=== PATIENT | female | born 1985 | race Caucasian/White ===

== ENCOUNTER 2017-03-23 05:40 | Inpatient (IN) | payer BC ==
[2017-03-23 06:11] LABS: ROM Internal QC QC Line Present
[2017-03-23] MEDS ORDERED: Misoprostol TAB* 100 MCG PO ONE (15:15)
[2017-03-24 02:06] LABS: Hematocrit 37 % (35-47); Hemoglobin 12.5 g/dl (12.0-16.0); Mean Corpuscular HGB Conc 34 g/dl (31-36); Mean Corpuscular Hemoglobin 32 pg (27-31); Mean Corpuscular Volume 95 fL (80-97); Mean Platelet Volume 9 um3 (7.4-10.4); Red Blood Count 3.92 10^6/ul (4.0-5.4); Red Cell Distribution Width 14 % (10.5-15); White Blood Count 18.5 10^3/ul (3.5-10.8)
[2017-03-24] MEDS ORDERED: OBEPIDURAL* 250 ML ONE (02:53)
[2017-03-24] MEDS ORDERED: Phenylephrine IV* 40 MCG/ML 10 ML SYRINGE IV PUSH PRN ×2 (03:26)
[2017-03-24] MEDS ORDERED: Famotidine TAB* 20 MG PO PRN (03:26)
[2017-03-24] MEDS ORDERED: EPHEDrine (Pressors)* 50 MG/ML VIAL IV PUSH PRN ×2 (03:26)
[2017-03-24] MEDS ORDERED: Sodium Citrate/Citric Acid* 15 ML UDC PO PRN (03:26)
[2017-03-24] MEDS ORDERED: Oxytocin in LR* 20 UNITS/1,000 ML BAG IVPB ONE (07:58)
[2017-03-24] MEDS ORDERED: Oxytocin in LR* 20 UNITS/1,000 ML BAG IVPB SCH ×2 (08:00→11:08)
[2017-03-24] MEDS ORDERED: oxyCODONE/Acetamin 5/325 MG* TAB PO PRN (11:06)
[2017-03-24] MEDS ORDERED: Glycerin ADULT SUPP PR PRN (11:06)
[2017-03-24] MEDS ORDERED: Acetaminophen TAB* 325 MG PO PRN (11:06)
[2017-03-24] MEDS: Ibuprofen TAB* 600 MG PO PRN ×2 (12:33→19:41)
[2017-03-24] MEDS: Dibucaine 1% 28.35 GM TUBE PR PRN (12:33)
[2017-03-24] MEDS: Witch Hazel PAD* JAR TOPICAL PRN (12:33)
[2017-03-24] MEDS: Docusate CAP* 100 MG PO SCH ×2 (14:27→19:41)
[2017-03-25] MEDS: Ibuprofen TAB* 600 MG PO PRN ×4 (01:06→19:43)
[2017-03-25] MEDS: OBEPIDURAL* 250 ML EPIDURAL SCH (04:59)
[2017-03-25 07:35] LABS: Hematocrit 32 % (35-47); Hemoglobin 10.6 g/dl (12.0-16.0); Mean Corpuscular HGB Conc 33 g/dl (31-36); Mean Corpuscular Hemoglobin 32 pg (27-31); Mean Corpuscular Volume 95 fL (80-97); Mean Platelet Volume 9 um3 (7.4-10.4); Red Blood Count 3.37 10^6/ul (4.0-5.4); Red Cell Distribution Width 14 % (10.5-15)
[2017-03-25] MEDS ORDERED: Ferrous Gluconate TAB* 324 MG TAB PO SCH (09:00)
[2017-03-25] MEDS: Docusate CAP* 100 MG PO SCH ×3 (13:08→20:40)
[2017-03-26 08:29] VITALS: BP 100/57
[2017-03-26] MEDS: Docusate CAP* 100 MG PO SCH (08:30)
[2017-03-26] MEDS: Ibuprofen TAB* 600 MG PO PRN (08:30)
[2017-03-26] MEDS: Witch Hazel PAD* JAR TOPICAL PRN (11:39)
[2017-03-26] MEDS: Dibucaine 1% 28.35 GM TUBE PR PRN (11:39)
== END 2017-03-26 12:35 | disposition home or self-care (01) | DRG 560 ==
LOC: MCHOBOUT 05:40 → MCHOB 06:20
PROVIDERS: ADMIT Midwife; ATTEND Obstetrics & Gynecology
PROC: 10E0XZZ Delivery of Products of Conception, External Approach (ICD-10-PCS; principal; 2017-03-24)
PROC: 0W8NXZZ Division of Female Perineum, External Approach (ICD-10-PCS; 2017-03-24)
DX: O42.02 Full-term premature rupture of membranes, onset of labor within 24 hours of rupture (principal); O99.344 Other mental disorders complicating childbirth; F32.9 Major depressive disorder, single episode, unspecified; O69.81X0 Labor and delivery complicated by cord around neck, without compression, not applicable or unspecified; F41.9 Anxiety disorder, unspecified; Z3A.37 37 weeks gestation of pregnancy; Z37.0 Single live birth
CPT/HCPCS: 36415; 76815; 84112; 85025; 86850; 86900; 86901; A9270-GY; S0191

== ENCOUNTER → 2019-05-28 | Day surgery (SDC) | payer BC ==
[~2019-05-28] MED LIST: Buffered Lidocaine 1% SYRIN* 1 ML/SYRINGE INTRADERM ONE; DOXYcycline IV 200 MG in NS 250 mL *Pre-Op OBGYN IVPB ONE; Dexamethasone IV* 4 MG/ML 1 ML (4 MG) ONE; Famotidine IV* 10 MG/ML 2 ML (20 mg) IV ONE; Famotidine IV* 10 MG/ML 2 ML (20 mg) ONE; KETAMINE HCL* 50 MG/ML 10 ML VIAL ONE; Ketorolac INJ* 30 MG/ML 1 ML VIAL ONE; Lactated Ringers 1000 ML Bag* 1,000 ML IV SCH; Lidocaine 1% INJ* 10 MG/ML 30 ML SDV ONE; Lidocaine 2% PF * 5 ML VIAL ONE; Midazolam* 1 MG/ML 2 ML VIAL (2 MG) ONE; Midazolam* 1 MG/ML 5 ML VIAL (5 MG) ONE; Naloxone* 0.4 MG/ML 1 ML VIAL IV PRN; Ondansetron INJ* 2 MG/ML VIAL IV PRN; Ondansetron INJ* 2 MG/ML VIAL ONE; Phenylephrine 40 MCG/ML SYRINGE ONE; Propofol* 10 MG/ML 20 ML BTL ONE; Silver Nitrate/Potassium Nitr* 1 EA STICK ONE; fentaNYL* 50 MCG/ML 2 ML VIAL (100 MCG VIAL) IV PRN; fentaNYL* 50 MCG/ML 2 ML VIAL (100 MCG VIAL) ONE
[2019-05-28 12:00] VITALS: BP 109/77
--- NOTE | 2019-05-28 13:01 | OP ---
Operative Report - Blank - Operative Report Date of Operation: 05/28/19 Note: OPERATIVE NOTE Date of Surgery: 05/28/2019 Pre-Op Dx: Missed at 6 weeks Post-op Dx: same Procedure: Suction D&C Surgeon: Chacorta Mancera DO Anesthesia: MAC + Paracervical Blockade IVF: 400mL EBL: 10mL UOP: none Specimen: Products of Conception Complications: none Findings: 6wk sized uterus anterverted, moderate products of conception Condition: stable to PACU Procedures: The risks, benefits, alternatives and indications of the procedure were reviewed with the patient. Patient opted for surgical management of MAB with suction D&C. Written consent was reviewed and obtained. Patient was taken to the OR where MAC was administered without difficulty. She was placed in dorsal lithotomy position with yellowfin stirrups. An exam under anesthesia revealed a 6wk sized anteverted uterus with a dilated cervix to 1cm. The patient was prepped and draped in the normal sterile fashion. A graves speculum was placed in the vagina. A single tooth tenaculum was used to gasp the anterior lip of the cervix. 10cc of 1% lidocaine was injected at 4 and 8 o'clock for paracervical blockade without complication. The cervix was carefully dilated with hegar dilators to accomodate a size 7 suction curette. The size 7 suction curette was carefully advanced to the fundus. The suction was started. The products of conception were evacuated with the curette rotating on the outward movement. The is was done x 3. A gentle sharp curettage was then performed with a medium sized curette with cry of the uterus noted x 4 quadrants. The suction curette was then reintroduced to the clear the uterus with one final pass. The tenaculum was removed from the cervix and silver nitrate applied at the tenaculum sites with good effect and ultimate excellent hemostasis. The patient tolerated the procedure well. The instrument and sponge counts were correct. The patient was awakened and taken to the recovery room in stable condition. The patient will be discharged from the recovery area once meeting discharge criteria per ambulatory surgery protocol. Chacorta Mancera DO OBGYN
== END | disposition home or self-care (01) ==
LOC: OR 07:54
PROVIDERS: ATTEND Obstetrics & Gynecology
DX: O02.1 Missed abortion (principal); F41.8 Other specified anxiety disorders
CPT/HCPCS: 88305; A9270-GY; J1100; J1885; J2250; J2405; J2704; J3010

== ENCOUNTER 2019-11-22 17:34 | Emergency (ER) | payer BC, MEDICAID ==
--- NOTE | 2019-11-22 17:53 | ED ---
- HPI Summary HPI Summary: 34 y/o female presented to [facility] for spotting and cramping during . Noted small amount of dark blood today. Pt is 7.5 weeks . , P: 1, A : 3. Pt notes hx of ectopic and [address] Mancera. Blood type is O positive. - History of Current Complaint Chief Complaint: EDOBProblems Stated Complaint: 7 WKS PREG SPOTTING PER PT Time Seen by Provider: 11/22/19 17:36 Hx Obtained From: Patient Chief Complaint: Vaginal Bleeding - spotting Onset/Duration: Still Present Current Severity: Mild Pain Intensity: 2 Character: Cramping Associated Signs and Symptoms: Positive: Vaginal Bleeding or Discharge - spotting - Assessment SAB: 2 IEA: 0 - Additional Pertinent History Maternal Blood Type and Rh: O Positive - Allergies/Home Medications Allergies/Adverse Reactions: Allergies Allergy/AdvReac Type Severity Reaction Status Date / Time No Known Allergies Allergy Verified 11/22/19 17:44 Home Medications: Home Medications Pnv No.95/Ferrous Fum/Folic AC [ Multivitamin Tablet] 1 each PO QAM [History Confirmed 11/22/19] Doxylamine Succinate [Unisom Sleep Aid] 12.5 mg PO QPM 11/22/19 [History Confirmed 11/22/19] PMH/Surg Hx/FS Hx/Imm Hx Endocrine/Hematology History: Reports: Hx Anemia - HX OF 15 YEARS AGO Denies: Hx Thyroid Disease Cardiovascular History: Denies: Other Cardiovascular Problems/Disorders Respiratory History: Denies: Hx Asthma, Hx Chronic Obstructive Pulmonary Disease (COPD), Other Respiratory Problems/Disorders GI History: Denies: Other GI Disorders History: Reports: Other Problems/Disorders - past ectopic ( 1 y) and miscarriage at 5weeks Denies: Hx Renal Disease Musculoskeletal History: Denies: Other Musculoskeletal History Sensory History: Reports: Hx Contacts or Glasses - INSTRUCTS GIVEN Denies: Hx Hearing Aid Opthamlomology History: Reports: Hx Contacts or Glasses - INSTRUCTS GIVEN Neurological History: Denies: Other Neuro Impairments/Disorders Psychiatric History: Reports: Hx Anxiety - HX OF IN THE PAST, Hx Depression - HX OF IN THE PAST - Surgical History Surgery Procedure, Year, and Place: 2014-ECTOPIC CLEARED FROM LEFT TUBE. 2002-WISDOM TEETH EXTRACTION. 1992-HERNIA REPAIR Hx Anesthesia Reactions: Yes - SOBBIN UNCONTROLLABLY Infectious Disease History: No Infectious Disease History: Denies: Traveled Outside the [place] in Last 30 Days - Family History Known Family History: Positive: Hypertension - mother - Social History Alcohol Use: None Alcohol Amount: NOT RECENTLY Hx Substance Use: No Substance Use Type: Reports: None Hx Tobacco Use: No Smoking Status (MU): Never Smoked Tobacco Have You Smoked in the Last Year: No Review of Systems Negative: Fever - vitals show temp at 97.9F Genitourinary: Other - spotting, cramping All Other Systems Reviewed And Are Negative: Yes Physical Exam - Summary Physical Exam Summary: Constitutional: Well-developed, Well-nourished, Alert. (-) Distressed Skin: Warm, Dry HENT: Normocephalic; Atraumatic Eyes: Conjunctiva normal Neck: Musculoskeletal ROM normal neck. (-) JVD, (-) Stridor, (-) Nuchal rigidity Cardio: Rhythm regular, tachycardic, Heart sounds normal; Intact distal pulses; Radial pulses are 2+ and symmetric. (-) Murmur Pulmonary/Chest wall: Effort normal. (-) Respiratory distress, (-) Wheezes, (-) Rales Abd: Soft, (-) tenderness, (-) Distension, (-) Guarding, (-) Rebound Musculoskeletal: (-) Edema Lymph: (-) Cervical adenopathy Neuro: Alert, Oriented x3 Psych: Mood and affect Normal - Physical Exam Triage Information Reviewed: Yes Vital Signs Reviewed: Yes Procedures - Sedation Patient Received Moderate/Deep Sedation with Procedure: No Diagnostics - Vital Signs Vital Signs Temp Pulse Resp BP Pulse Ox 11/22/19 17:41 97.9 F 95 16 141/82 100 - Laboratory Lab Statement: Any lab studies that have been ordered have been reviewed, and results considered in the medical decision making process. - Ultrasound Ultrasound Interpretation Completed By: Radiologist Summary of Ultrasound Findings: IMPRESSION: 1. Left ovarian cyst. Recommend follow-up examination to document resolution. 2. Early intrauterine of 7 weeks and 3 days estimated gestational. age. This report was reviewed by the ED physician. Course/Dx - Course Course Of Treatment: 34 y/o F at 7 weeks p/w spotting/cramping. - check US. O positive. - US measuring 7 weeks 3 days, +FCA. - given return precautions - Diagnoses Provider Diagnoses: Threatened miscarriage Discharge ED - Sign-Out/Discharge Documenting (check all that apply): Patient Departure - dc - Discharge Plan Condition: Stable Disposition: HOME Patient Education Materials: Threatened Miscarriage (ED) Referrals: Barbara Young DO [Primary Care Provider] - Additional Instructions: You were seen in the emergency department for spotting. Your ultrasound showed a at 7 weeks and 3 days and a left ovarian cyst. Please follow up with your OB. Please follow up with your primary care doctor in the next 2-3 days and return to the emergency department for worsening bleeding, or concerning symptoms. It was a pleasure taking care of you today. - Billing Disposition and Condition Condition: STABLE Disposition: Home - Attestation Statements Document Initiated by Jamia: Yes Documenting Scribe: Blair Brown Provider For Whom Jamia is Documenting (Include Credential): Maynor Pepper MD Scribe Attestation: IBlair, scribed for Maynor Pepper MD on 11/22/19 at 1942. Scribe Documentation Reviewed: Yes Provider Attestation: The documentation as recorded by the scribBlair mata accurately reflects the service I personally performed and the decisions made by , Maynor Pepper MD Status of Scribe Document: Viewed
--- OUTSIDE RECORDS SUMMARY | 2019-11-22 18:35 | XMS REPORT | Continuity of Care Document ---
:1985 External Reference #:[id number] Author Name Jonny Mancera JR, DO (transmitted by agent of provider Nicole Kendrick) Address [address] [facility], [facility] [place] [address] Care Team Providers Name Role Phone Barbara Young M.D - Internal Care Team Information [employer] Director Medicine Problems Active Problems Provider Date Primigravida Kathie Hernandez CNM Onset: 08/31/2016 Social History Type Date Description Comments Sex Unknown Tobacco Use Start: Unknown Never Smoked Cigarettes Smoking Status Reviewed: 10/24/19 Never Smoked Cigarettes ETOH Use Occasionally consumes alcohol Recreational Drug Use former sporadic marijuana use Tobacco Use Start: Unknown Patient has never smoked Exercise Type/Frequency Exercises sporadically Seat Belt/Car Seat Always uses seat belt Allergies, Adverse Reactions, Alerts Description No Known Drug Allergies Medications Description No Active Medications Medications Administered in Office Medication SIG Qnty Indications Ordering Provider Date PT SCRN Tbco Id as Non User Jonny Mancera JR, DO 10/24/2019 Injection PT SCRN Tbco Id as Non User Betzaida Peterson MD 05/26/2019 Injection PT SCRN Tbco Id as Non User Otilia Rasmussen CNM 05/21/2019 Injection Immunizations CPT Code Status Date Vaccine Lot # [id number] Given 01/29/2017 Tetnus, Diptheria Toxoids And Acellular Pertussis, 594SR PT > 7Yrs Old Vital Signs Date Vital Result Comment 10/24/2019 8:29am BP Systolic 104 mmHg BP Diastolic 60 mmHg Height 67 inches 5'7" Weight 126.00 lb BMI (Body Mass Index) 19.7 kg/m2 Last Menstrual Period 6242063 4 Parity 1 06/10/2019 1:03pm BP Systolic 102 mmHg BP Diastolic 68 mmHg Height 67 inches 5'7" Weight 122.00 lb BMI (Body Mass Index) 19.1 kg/m2 Last Menstrual Period 3807915 4 Parity 1 Results Test Acquired Date Facility Test Result H/L Range Note Laboratory test 10/24/2019 [facility] HCG 78.16 [address] [place] [address] mIU/mL [phone] Laboratory test 06/10/2019 [facility] TSH 0.60 Normal 0.34- 5.60 [address] [place] [address] mcIU/mL [phone] T4 Free 0.97 ng/dL Normal 0.61-1.12 3 Laboratory test 05/28/2019 [facility] Surgical SEE RESULT [address] [place] [address] Pathology BELOW [phone] Laboratory test 05/23/2019 [facility] HCG 80109.00 [address] [place] [address] mIU/mL [phone] Laboratory test 05/21/2019 [facility] HCG 95433.00 [address] [place] [address] mIU/mL [phone] 1 <5.0 Negative 5.0 - 25.0 Indeterminate (Repeat testing recommended after 72 hours) >25.0 Positive Perimenopausal women can display HCG levels of up to 20 mIU/mL 2 [id number] 3 [id number] 4 SEE RESULT BELOW Name: APOORVA BATRES : [address]: Jonny Mancera DO Acct: [id number] Unit: [id number] AGE: 33 Location: OR Re05/28/19 SEX: F Status: REG [facility] SPEC: [id number] AGUSTÍN: 05/28/19- [facility] DR: Jonny Mnacera DO REQ: [id number] RECD: 05/28/19 STATUS: SOUT _ ORDERED: LEVEL 4 FINAL DIAGNOSIS Uterus, contents: -- Products of conception including immature chorionic villi. PRE-OPERATIVE DIAGNOSIS Dilation and curettage GROSS DESCRIPTION The specimen is received in formalin labeled, Products of Conception, and consists of an 8.0 x 5.2 x 0.8 cm aggregate of cuevas-pink irregular membranous and focally papilliferous soft tissue fragments admixed with blood-tinged mucus and red-brown blood clot. Probable chorionic villi are identified. No parts are identified. Clean Energy Policy Analyst sections, two cassettes. Signed by and Reported on: Cal Neal MD 1336 END OF REPORT DEPARTMENT OF PATHOLOGY, [address] [place] [address] Cal Neal M.D. Director [facility] # [id number] 5 <5.0 Negative 5.0 - 25.0 Indeterminate (Repeat testing recommended after 72 hours) >25.0 Positive Perimenopausal women can display HCG levels of up to 20 mIU/mL 6 <5.0 Negative 5.0 - 25.0 Indeterminate (Repeat testing recommended after 72 hours) >25.0 Positive Perimenopausal women can display HCG levels of up to 20 mIU/mL Procedures Date Code Description Status 05/28/2019 45717 Dilation & Curettage (D&C) Completed 05/21/2019 81966 OB Ultrasound First Trimester Completed Medical Devices Description No Information Available Encounters Type Date Location Provider Dx Diagnosis Office Visit 10/24/2019 [facility] Jonny Mancera JR, O26.91 related 8:00a DO conditions, unspecified, first trimester Office Visit 06/10/2019 [facility] Jonny Mancera JR, O02.1 Missed 1:00p DO Office Visit 05/26/2019 [facility] Betzaida Peterson, O02.1 Missed 11:00a MD Office Visit 05/21/2019 [facility] Otilia Rasmussen CNM O36.80x1 with 10:30a inconclusive viability, fetus 1 Assessments Date Code Description Provider 10/24/2019 Z32.00 Encounter for test, result Eric Peña M.D. unknown 10/24/2019 O26.91 related conditions, unspecified, Jonny Mancrea JR , DO first trimester 10/24/2019 Z32.00 Encounter for test, result Laboratory unknown 06/10/2019 O02.1 Missed Jonny Mancera JR, DO 05/28/2019 O02.1 Missed Jonny Mancera JR, DO 05/26/2019 O02.1 Missed Betzaida Peterson MD 05/23/2019 O02.1 Missed Susy Logan MD 05/23/2019 O02.1 Missed Laboratory 05/21/2019 O26.91 related conditions, unspecified, Jonny Mancera JR , DO first trimester 05/21/2019 O36.80x1 with inconclusive Otilia Rasmussen CNM viability, fetus 1 05/21/2019 O26.91 related conditions, unspecified, Ultrasounds first trimester Plan of Treatment Future Appointment(s):12/03/2019 1:00 pm - [facility] at [facility]11/20/2019 3:00 pm - [facility] at [facility]11/20/2019 2:30 pm - Ultrasounds at [facility]06/10/2019 - Jonny Mancera JR DOO02.1 Missed abortionComments:Pt recovering well.No complications s/p suction D&C for MAB.Will check TSH/T4. Functional Status Description No Information Available Mental Status Description No Information Available Referrals Description No Information Available
--- OUTSIDE RECORDS SUMMARY | 2019-11-22 18:35 | XMS REPORT | Continuity of Care Document ---
:1985 External Reference #:[id number] Author Name Ultrasounds (transmitted by agent of provider Milla Vernon) Address [address] [place] [address] Care Team Providers Name Role Phone Barbara Young M.D - Internal Care Team Information Account Services Manager Medicine Problems Description No Information Available Social History Type Date Description Comments Sex Unknown Tobacco Use Start: Unknown Never Smoked Cigarettes Smoking Status Reviewed: 10/24/19 Never Smoked Cigarettes ETOH Use Occasionally consumes alcohol Recreational Drug Use former sporadic marijuana use Tobacco Use Start: Unknown Patient has never smoked Recreational Drug Use Denies Drug Use Exercise Type/Frequency Exercises sporadically Seat Belt/Car Seat Always uses seat belt Allergies, Adverse Reactions, Alerts Description No Known Drug Allergies Medications Active Medications SIG Qnty Indications Ordering Date Provider Doxylamine take 2 tablets at 90tabs Diana Jade 11/10/2019 Succinate/Pyridoxine bedtime; if Rene, CNM Hydrochloride symtpoms persist 10-10mg after 72 hours, Tablets DR take an additional tablet in the morning and afternoon History Medications No Active Medications Unknown 05/26/2019 - 11/10/2019 Medications Administered in Office Medication SIG Qnty Indications Ordering Provider Date PT SCRN Tbco Id as Non User Jonny Mancera JR, DO 10/24/2019 Injection PT SCRN Tbco Id as Non User Betzaida Peterson MD 05/26/2019 Injection PT SCRN Tbco Id as Non User Otilia Rasmussen CNM 05/21/2019 Injection Immunizations CPT Code Status Date Vaccine Lot # [id number] Given 01/29/2017 Tetnus, Diptheria Toxoids And Acellular Pertussis, 594SR PT > 7Yrs Old Vital Signs Date Vital Result Comment 10/24/2019 8:29am BP Systolic 104 mmHg BP Diastolic 60 mmHg Height 67 inches 5'7" Weight 126.00 lb BMI (Body Mass Index) 19.7 kg/m2 Last Menstrual Period 1231446 4 Parity 1 06/10/2019 1:03pm BP Systolic 102 mmHg BP Diastolic 68 mmHg Height 67 inches 5'7" Weight 122.00 lb BMI (Body Mass Index) 19.1 kg/m2 Last Menstrual Period 1286536 4 Parity 1 Results Test Acquired Date Facility Test Result H/L Range Note Laboratory test 10/27/2019 [facility] HCG 285.44 [address] [place] [address] mIU/mL [phone] Laboratory test 10/24/2019 [facility] HCG 78.16 [address] [place] [address] mIU/mL [phone] Laboratory test 06/10/2019 [facility] TSH 0.60 Normal 0.34- 5.60 [address] [place] [address] mcIU/mL [phone] T4 Free 0.97 ng/dL Normal 0.61-1.12 4 Laboratory test 05/28/2019 [facility] Surgical SEE RESULT [address] [place] [address] Pathology BELOW [phone] Laboratory test 05/23/2019 [facility] HCG 57560.00 [address] [place] [address] mIU/mL [phone] Laboratory test 05/21/2019 [facility] HCG 86453.00 [address] [place] [address] mIU/mL [phone] 1 <5.0 Negative 5.0 - 25.0 Indeterminate (Repeat testing recommended after 72 hours) >25.0 Positive Perimenopausal women can display HCG levels of up to 20 mIU/mL 2 <5.0 Negative 5.0 - 25.0 Indeterminate (Repeat testing recommended after 72 hours) >25.0 Positive Perimenopausal women can display HCG levels of up to 20 mIU/mL 3 [id number] 4 [id number] 5 SEE RESULT BELOW Name: APOORVA BATRES : [address]: Jonny Mancera DO Acct: [id number] Unit: [id number] AGE: 33 Location: OR Re05/28/19 SEX: F Status: REG [facility] SPEC: [id number] AGUSTÍN: 05/28/19- [facility] DR: Jonny Mancera DO REQ: [id number] RECD: 05/28/19 STATUS: SOUT _ ORDERED: LEVEL [...] villi are identified. No parts are identified. Legal Consultant sections, two cassettes. Signed by and Reported on: Cal Neal MD 1336 END OF REPORT DEPARTMENT OF PATHOLOGY, [address] [place] [id number] Cal Neal M.D. Director [facility] # [id number] 6 <5.0 Negative 5.0 - 25.0 Indeterminate (Repeat testing recommended after 72 hours) >25.0 Positive Perimenopausal women can display HCG levels of up to 20 mIU/mL 7 <5.0 Negative 5.0 - 25.0 Indeterminate (Repeat testing recommended after 72 hours) >25.0 Positive Perimenopausal women can display HCG levels of up to 20 mIU/mL Procedures Date Code Description Status 11/10/2019 43756 OB Ultrasound First Trimester Completed 05/28/2019 11380 Dilation & Curettage (D&C) Completed 05/21/2019 71622 OB Ultrasound First Trimester Completed Medical Devices Description No Information Available Encounters Type Date Location Provider Dx Diagnosis Office Visit 10/24/2019 [facility] Jonny Mancera JR, O26.91 related 8:00a DO conditions, unspecified, first trimester Office Visit 06/10/2019 [facility] Jonny Mancera JR, O02.1 Missed 1:00p DO Office Visit 05/26/2019 [facility] Betzaida Peterson, O02.1 Missed 11:00a MD Office Visit 05/21/2019 [facility] Otilia Rasmussen CNM O36.80x1 with 10:30a inconclusive viability, fetus 1 Assessments Date Code Description Provider 11/10/2019 O26.91 related conditions, Jonny Mancera JR DO unspecified, first trimester 11/10/2019 Z34.81 Encounter for supervision of other Diana López CNM normal , first trimester 11/10/2019 O26.91 related conditions, Ultrasounds unspecified, first trimester 10/27/2019 Z32.00 Encounter for test, result Susy Logan MD unknown 10/27/2019 Z32.00 Encounter for test, result Laboratory unknown 10/24/2019 Z32.00 Encounter for test, result Eric Peña M.D. unknown 10/24/2019 O26.91 related conditions, Jonny Mancera JR, DO unspecified, first trimester 10/24/2019 Z32.00 Encounter for test, result Laboratory unknown 06/10/2019 O02.1 Missed Jonny Mancera JR, DO 05/28/2019 O02.1 Missed Jonny Mancera JR, DO 05/26/2019 O02.1 Missed Betzaida Peterson MD 05/23/2019 O02.1 Missed Susy Logan MD 05/23/2019 O02.1 Missed Laboratory 05/21/2019 O26.91 related conditions, Jonny Mancera JR, DO unspecified, first trimester 05/21/2019 O36.80x1 with inconclusive Otilia Rasmussen CNM viability, fetus 1 05/21/2019 O26.91 related conditions, Ultrasounds unspecified, first trimester Plan of Treatment Future Appointment(s):11/25/2019 8:15 am - [facility] at [facility]11/25/2019 8:00 am - Ultrasounds at [facility]12/03/2019 1:00 pm - [facility] at [facility]06/10/2019 - Jonny Mancera JR, DOO02.1 Missed abortionComments:Pt recovering well.No complications s/p suction D&C for MAB.Will check TSH/T4. Functional Status Description No Information Available Mental Status Description No Information Available Referrals Description No Information Available
--- OUTSIDE RECORDS SUMMARY | 2019-11-22 18:35 | XMS REPORT | Continuity of Care Document ---
:1985 External Reference #:[id number] Author Name Diana López CNM (transmitted by agent of provider Milla Vernon) Address [address] [facility] [place] [address] Care Team Providers Name Role Phone Barbara Young M.D - Internal Care Team Information Batter Out Medicine Problems Description No Information Available Social [...] 90tabs Diana Jade 11/10/2019 Succinate/Pyridoxine bedtime; if MOIRA López Hydrochloride symtpoms persist 10-10mg after 72 hours, [...] CPT Code Status Date Vaccine Lot # [id number] Given 01/29/2017 Tetnus, Diptheria Toxoids And Acellular Pertussis, 594SR PT > 7Yrs Old Vital Signs Date Vital Result Comment 10/24/2019 8:29am BP Systolic 104 mmHg BP Diastolic 60 mmHg Height 67 inches 5'7" Weight 126.00 lb BMI (Body Mass Index) 19.7 kg/m2 Last Menstrual Period 8507743 4 Parity 1 06/10/2019 1:03pm BP Systolic 102 mmHg BP Diastolic 68 mmHg Height 67 inches 5'7" Weight 122.00 lb BMI (Body Mass Index) 19.1 kg/m2 Last Menstrual Period 4149981 4 Parity 1 Results Test Acquired Date Facility Test Result H/L Range Note Laboratory test 10/27/2019 [facility] HCG 285.44 1 [place] [address] mIU/mL [phone] Laboratory test 10/24/2019 [facility] HCG 78.16 2 [place] [address] mIU/mL [phone] Laboratory test 06/10/2019 [facility] TSH 0.60 Normal 0.34- 5.60 3 [place] [address] mcIU/mL [phone] T4 Free 0.97 ng/dL Normal 0.61-1.12 4 Laboratory test 05/28/2019 [facility] Surgical SEE RESULT 5 [place] [address] Pathology BELOW [phone] Laboratory test 05/23/2019 [facility] HCG 11242.00 6 [place] [address] mIU/mL [phone] Laboratory test 05/21/2019 [facility] HCG 24975.00 7 [place] [address] mIU/mL [phone] 1 <5.0 Negative 5.0 - 25.0 Indeterminate (Repeat testing recommended after 72 hours) >25.0 Positive Perimenopausal women can display HCG levels of up to 20 mIU/mL 2 <5.0 Negative 5.0 - 25.0 Indeterminate (Repeat testing recommended after 72 hours) >25.0 Positive Perimenopausal women can display HCG levels of up to 20 mIU/mL 3 [id number] 4 [id number] 5 SEE RESULT BELOW Name: APOORVA BATRES : [address]: Jonny Mancera DO Acct: [id number] Unit: [id number] AGE: 33 Location: OR Re05/28/19 SEX: F [place] [facility] [place]: [id number] AGUSTÍN: 05/28/19- [facility] DR: Jonny Mancera DO REQ: [id number] RECD: 05/28/19 STATUS: SOUT _ ORDERED: LEVEL [...] villi are identified. No parts are identified. Butcher Supervisor sections, two cassettes. Signed by and Reported on: Cal Neal MD 1336 END OF REPORT DEPARTMENT OF PATHOLOGY, [address] [place] [address] Cal Neal M.D. Director [facility] # [id number] 6 <5.0 Negative 5.0 - 25.0 Indeterminate (Repeat testing recommended after 72 hours) >25.0 Positive Perimenopausal women can display HCG levels of up to 20 mIU/mL 7 <5.0 Negative 5.0 - 25.0 Indeterminate (Repeat testing recommended after 72 hours) >25.0 Positive Perimenopausal women can display HCG levels of up to 20 mIU/mL Procedures Date Code Description Status 11/10/2019 02288 OB Ultrasound First Trimester Completed 05/28/2019 12803 Dilation & Curettage (D&C) Completed 05/21/2019 75628 OB Ultrasound First Trimester Completed Medical Devices Description No Information Available Encounters Type Date Location Provider Dx Diagnosis Office Visit 10/24/2019 [facility] Jonny Mancera JR, O26.91 related 8:00a DO conditions, unspecified, first trimester Office Visit 06/10/2019 [facility] Office Jonny Mancera JR, O02.1 Missed 1:00p [...] 8:15 am - [facility] at [facility]11/25/2019 8:00 am - Ultrasounds at [facility]12/03/2019 1:00 pm - [facility] at [facility]06/10/2019 - Jonny Mancera JR, DOO02.1 Missed abortionComments:Pt recovering well.No complications s/p suction D&C for MAB.Will check TSH/T4. Functional Status Description No Information Available Mental Status Description No Information Available Referrals Description No Information Available
--- OUTSIDE RECORDS SUMMARY | 2019-11-22 18:35 | XMS REPORT | Continuity of Care Document ---
:1985 External Reference #:[id number] Author Name Laboratory (transmitted by agent of provider Jana Osman) Address [address] [place] [address] Care Team Providers Name Role Phone Barbara Young M.D - Internal Care Team Information Family Mediator Medicine Problems Active Problems Provider Date Primigravida Kathie Hernandez CNM Onset: 08/31/2016 Social History Type Date Description Comments Sex Unknown Tobacco Use Start: Unknown Never Smoked Cigarettes Smoking Status Reviewed: 06/10/19 Never Smoked Cigarettes ETOH Use Occasionally consumes [...] PT SCRN Tbco Id as Non User tOilia Rasmussen CNM 05/21/2019 Injection Immunizations CPT Code Status Date Vaccine Lot # [id number] Given 01/29/2017 Tetnus, Diptheria Toxoids And Acellular Pertussis, 594SR PT > 7Yrs Old Vital Signs Date Vital Result Comment 06/10/2019 1:03pm BP Systolic 102 mmHg BP Diastolic 68 mmHg Height 67 inches 5'7" Weight 122.00 lb BMI (Body Mass Index) 19.1 kg/m2 Last Menstrual Period 3021730 4 Parity 1 05/26/2019 11:05am BP Systolic 118 mmHg BP Diastolic 60 mmHg Height 67 inches 5'7" Weight 123.00 lb BMI (Body Mass Index) 19.3 kg/m2 Last Menstrual Period 5167306 4 Parity 1 Results Test Acquired Date Facility Test Result H/L Range Note Laboratory test 10/24/2019 [facility] HCG <pending> [place] [address] [phone] Laboratory test 06/10/2019 [facility] TSH 0.60 Normal 0.34- 5.60 1 [place] [address] mcIU/mL [phone] T4 Free 0.97 ng/dL Normal 0.61-1.12 2 Laboratory test 05/28/2019 [facility] Surgical SEE RESULT 3 [place] [address] Pathology BELOW [phone] Laboratory test 05/23/2019 [facility] HCG 86125.00 4 finding [place] [address] mIU/mL [phone] Laboratory test 05/21/2019 [facility] HCG 36508.00 5 finding [place] [address] mIU/mL [phone] 1 [id number] 2 [id number] 3 SEE RESULT BELOW Name: WOLFGANGAPOORVA : [address]: Jonny Mancera DO Acct: [id number] Unit: [id number] AGE: 33 Location: OR Re05/28/19 SEX: F Status: [facility] SPEC: [id number] AGUSTÍN: 05/28/19- [facility] DR: Jonny Mancera DO REQ: [id number] RECD: 05/28/19 STATUS: SOUT _ ORDERED: LEVEL [...] villi are identified. No parts are identified. Crusher And Binder Operator sections, two cassettes. Signed by and Reported on: Cal Neal MD 1336 END OF REPORT DEPARTMENT OF PATHOLOGY, [address] [place] [address] Cal Neal M.D. Director [facility] # [id number] 4 <5.0 Negative 5.0 - 25.0 Indeterminate (Repeat testing recommended after 72 hours) >25.0 Positive Perimenopausal women can display HCG levels of up to 20 mIU/mL 5 <5.0 Negative 5.0 - 25.0 Indeterminate (Repeat testing recommended after 72 hours) >25.0 Positive Perimenopausal women can display HCG levels of up to 20 mIU/mL Procedures Date Code Description Status 05/28/2019 92992 Dilation & Curettage (D&C) Completed 05/21/2019 53845 OB Ultrasound First Trimester Completed Medical Devices Description No Information Available Encounters Type Date Location Provider Dx Diagnosis Office Visit 06/10/2019 [facility] Jonny Mancera JR, O02.1 Missed 1:00p DO Office Visit 05/26/2019 [facility] Baclawski, Betazida, O02.1 Missed 11:00a MD Office Visit 05/21/2019 [facility] Otilia Rasmussen, SHIRLEYHarris O36.80x1 with 10:30a inconclusive viability, fetus 1 Assessments Date Code Description Provider 10/24/2019 Z32.00 Encounter for test, result unknown Laboratory 06/10/2019 O02.1 Missed Jonny Mancera JR, DO 05/28/2019 O02.1 Missed Jonny Mancera JR, DO 05/26/2019 O02.1 Missed Betzaida Peterson MD 05/23/2019 O02.1 Missed Susy Logan MD 05/23/2019 O02.1 Missed Laboratory 05/21/2019 O26.91 related conditions, unspecified, Jonny Mancera JR , DO first trimester 05/21/2019 O36.80x1 with inconclusive viability, Otilia Rasmussen CNM fetus 1 05/21/2019 O26.91 related conditions, unspecified, Ultrasounds first trimester Plan of Treatment Future Appointment(s):12/03/2019 1:00 pm - [facility] at [facility]11/20/2019 3:00 pm - [facility] at [facility]11/20/2019 2:30 pm - Ultrasounds at [facility]06/10/2019 - Jonny Mancera JR, DOO02.1 Missed abortionComments:Pt recovering well.No complications s/p suction D&C for MAB.Will check TSH/T4. Functional Status Description No Information Available Mental Status Description No Information Available Referrals Description No Information Available
--- OUTSIDE RECORDS SUMMARY | 2019-11-22 18:35 | XMS REPORT | Continuity of Care Document ---
:1985 External Reference #:[id number] Author Name Diana López CNM Address [address] [place] [address], [place] [address] Care Team Providers Name Role Phone Barbara Young M.D - Internal Care Team Information Specimen Boss [phone] Medicine Problems Active Problems Provider Date Primigravida [...] CPT Code Status Date Vaccine Lot # [id number] Given 01/29/2017 Tetnus, Diptheria Toxoids And Acellular Pertussis, 594SR PT > 7Yrs Old Vital Signs Date Vital Result Comment 10/24/2019 8:29am BP Systolic 104 mmHg BP Diastolic 60 mmHg Height 67 inches 5'7" Weight 126.00 lb BMI (Body Mass Index) 19.7 kg/m2 Last Menstrual Period 7246475 4 Parity 1 06/10/2019 1:03pm BP Systolic 102 mmHg BP Diastolic 68 mmHg Height 67 inches 5'7" Weight 122.00 lb BMI (Body Mass Index) 19.1 kg/m2 Last Menstrual Period 4289071 4 Parity 1 Results Test Acquired Date Facility Test Result H/L Range Note Laboratory test 10/27/2019 [facility] HCG 285.44 1 [place] [address] mIU/mL [phone] Laboratory test 10/24/2019 [facility] HCG 78.16 2 [place] [address] mIU/mL [phone] Laboratory test 06/10/2019 [facility] TSH 0.60 Normal 0.34- 5.60 3 [place] [address] mcIU/mL [phone] T4 Free 0.97 ng/dL Normal 0.61-1.12 4 Laboratory test 05/28/2019 [facility] Surgical SEE RESULT 5 [place] [address] Pathology BELOW [phone] Laboratory test 05/23/2019 [facility] HCG 29688.00 6 [place] [address] mIU/mL [phone] Laboratory test 05/21/2019 [facility] HCG 82318.00 7 [place] [address] mIU/mL [phone] 1 <5.0 Negative 5.0 - 25.0 Indeterminate (Repeat testing recommended after 72 hours) >25.0 Positive Perimenopausal women can display HCG levels of up to 20 mIU/mL 2 <5.0 Negative 5.0 - 25.0 Indeterminate (Repeat testing recommended after 72 hours) >25.0 Positive Perimenopausal women can display HCG levels of up to 20 mIU/mL 3 [id number] 4 [id number] 5 SEE RESULT BELOW Name: APOORVA BATRES : [address]: Jonny Mancera DO Acct: [id number] Unit: [id number] AGE: 33 Location: OR Re05/28/19 SEX: F Status: REG [facility] SPEC: [id number] AGUSTÍN: 05/28/19- [facility] DR: Jonny Mancera DO REQ: [id number] RECD: 05/28/19 STATUS: SOUT _ ORDERED: LEVEL [...] villi are identified. No parts are identified. Director Media sections, two cassettes. Signed by and Reported on: Cal Neal MD 1336 END OF REPORT DEPARTMENT OF PATHOLOGY, [address] [place] [address] Cal Neal M.D. Director [facility] # [id number] 6 <5.0 Negative 5.0 - 25.0 Indeterminate (Repeat testing recommended after 72 hours) >25.0 Positive Perimenopausal women can display HCG levels of up to 20 mIU/mL 7 <5.0 Negative 5.0 - 25.0 Indeterminate (Repeat testing recommended after 72 hours) >25.0 Positive Perimenopausal women can display HCG levels of up to 20 mIU/mL Procedures Date Code Description Status 11/10/2019 50649 OB Ultrasound First Trimester Completed 05/28/2019 97440 Dilation & Curettage (D&C) Completed 05/21/2019 02039 OB Ultrasound First Trimester Completed Medical Devices Description No Information Available Encounters Type Date Location Provider Dx Diagnosis Office Visit 10/24/2019 [facility] Jonny Mancera JR, O26.91 related 8:00a DO conditions, unspecified, first trimester Office Visit 06/10/2019 [facility] Jonny Mancera JR, O02.1 Missed 1:00p DO Office Visit 05/26/2019 [facility] Betzaida Peterson, O02.1 Missed 11:00a MD Office Visit 05/21/2019 [facility] tOilia RasmussenSHIRLEY O36.80x1 with 10:30a inconclusive viability, fetus 1 Assessments Date Code Description Provider 11/10/2019 O26.91 related conditions, unspecified, Ultrasounds first trimester 10/27/2019 Z32.00 Encounter for test, result Susy Logan MD unknown 10/27/2019 Z32.00 Encounter for test, result Laboratory unknown 10/24/2019 Z32.00 Encounter for test, result Eric Peña M.D. unknown 10/24/2019 O26.91 related conditions, unspecified, Jonny Mancera JR , DO first trimester 10/24/2019 Z32.00 [...] 1:00 pm - [facility]06/[facility]/2019 - Jonny Mancera JR, DOO02.1 Missed abortionComments:Pt recovering well.No complications s/p suction D&C for MAB.Will check TSH/T4. Functional Status Description No Information Available Mental Status Description No Information Available Referrals Description No Information Available
--- OUTSIDE RECORDS SUMMARY | 2019-11-22 18:35 | XMS REPORT | Continuity of Care Document ---
:1985 External Reference #:[id number] Author Name Laboratory (transmitted by agent of provider Jana Osman) Address [address] [place] [address] Care Team Providers Name Role Phone Barbara Young M.D - Internal Care Team Information Radio Director [phone] Medicine Problems Active Problems Provider Date Primigravida [...] SCRN Tbco Id as Non User Otilia Rsamussen CNM 05/21/2019 Injection Immunizations CPT Code Status Date Vaccine Lot # [id number] Given 01/29/2017 Tetnus, Diptheria Toxoids And Acellular Pertussis, 594SR PT > 7Yrs Old Vital Signs Date Vital Result Comment 10/24/2019 8:29am BP Systolic 104 mmHg BP Diastolic 60 mmHg Height 67 inches 5'7" Weight 126.00 lb BMI (Body Mass Index) 19.7 kg/m2 Last Menstrual Period 4916991 4 Parity 1 06/10/2019 1:03pm BP Systolic 102 mmHg BP Diastolic 68 mmHg Height 67 inches 5'7" Weight 122.00 lb BMI (Body Mass Index) 19.1 kg/m2 Last Menstrual Period 6444101 4 Parity 1 Results Test Acquired Date Facility Test Result H/L Range Note Laboratory test 10/27/2019 [facility] HCG <pending> [place] [address] [phone] Laboratory test 10/24/2019 [facility] HCG 78.16 1 finding [place] [address] mIU/mL [phone] Laboratory test 06/10/2019 [facility] TSH 0.60 Normal 0.34- 5.60 2 finding [place] [address] mcIU/mL [phone] T4 Free 0.97 ng/dL Normal 0.61-1.12 3 Laboratory test 05/28/2019 [facility] Surgical SEE RESULT 4 finding [place] [address] Pathology BELOW [phone] Laboratory test 05/23/2019 [facility] HCG 77552.00 [address] [place] [address] mIU/mL [phone] Laboratory test 05/21/2019 [facility] HCG 35108.00 [address] [place] [address] mIU/mL [phone] 1 <5.0 Negative 5.0 - 25.0 Indeterminate (Repeat testing recommended after 72 hours) >25.0 Positive Perimenopausal women can display HCG levels of up to 20 mIU/mL 2 [id number] 3 [id number] 4 SEE RESULT BELOW Name: WOLFGANGAPOORVA Elaine : [address]: Jonny Mancera DO Acct: [id number] Unit: [id number] AGE: 33 Location: OR Re05/28/19 SEX: F [place] [facility] [place]: [id number] AGUSTÍN: 05/28/19- DR: Jonny Mancera DO REQ: [id number] RECD: 05/28/19 STATUS: SOUT _ ORDERED: LEVEL [...] villi are identified. No parts are identified. Health Teacher sections, two cassettes. Signed by and Reported on: Cal Neal MD 1336 END OF REPORT DEPARTMENT OF PATHOLOGY, [address] [place] [address] Cal Neal M.D. Director [facility] # [id number] 5 <5.0 Negative 5.0 - 25.0 Indeterminate (Repeat testing recommended after 72 hours) >25.0 Positive Perimenopausal women can display HCG levels of up to 20 mIU/mL 6 <5.0 Negative 5.0 - 25.0 Indeterminate (Repeat testing recommended after 72 hours) >25.0 Positive Perimenopausal women can display HCG levels of up to 20 mIU/mL Procedures Date Code Description Status 05/28/2019 40021 Dilation & Curettage (D&C) Completed 05/21/2019 43390 OB Ultrasound First Trimester Completed Medical Devices Description No Information Available Encounters Type Date Location Provider Dx Diagnosis Office Visit 10/24/2019 [facility] Jonny Mancera JR, O26.91 related 8:00a DO conditions, unspecified, first trimester Office Visit 06/10/2019 [facility] Jonny Mancera JR, O02.1 Missed 1:00p DO Office Visit 05/26/2019 [facility] Betzaida Peterson, O02.1 Missed 11:00a MD Office Visit 05/21/2019 [facility] Otilia Rasmussen CNM O36.80x1 with 10:30a inconclusive viability, fetus 1 Assessments Date Code Description Provider 10/27/2019 Z32.00 Encounter for test, result Laboratory [...]
--- OUTSIDE RECORDS SUMMARY | 2019-11-22 18:35 | XMS REPORT | Continuity of Care Document ---
:1985 External Reference #:[id number] Author Name Jonny Mancera JR, DO (transmitted by agent of provider Shruti Louie ) Address [address] [facility] [place] [address] Care Team Providers Name Role Phone Barbara Young M.D - Internal Care Team Information Batch Tank Controller [phone] Medicine Problems Active Problems Provider Date Primigravida [...] CPT Code Status Date Vaccine Lot # [id number] Given 01/29/2017 Tetnus, Diptheria Toxoids And Acellular Pertussis, 594SR PT > 7Yrs Old Vital Signs Date Vital Result Comment 10/24/2019 8:29am BP Systolic 104 mmHg BP Diastolic 60 mmHg Height 67 inches 5'7" Weight 126.00 lb BMI (Body Mass Index) 19.7 kg/m2 Last Menstrual Period 0143689 4 Parity 1 06/10/2019 1:03pm BP Systolic 102 mmHg BP Diastolic 68 mmHg Height 67 inches 5'7" Weight 122.00 lb BMI (Body Mass Index) 19.1 kg/m2 Last Menstrual Period 8884371 4 Parity 1 Results Test Acquired Date Facility Test Result H/L Range Note Laboratory test 10/24/2019 [facility] HCG <pending> [place] [address] [phone] Laboratory test 06/10/2019 [facility] TSH 0.60 Normal 0.34- 5.60 1 [place] [address] mcIU/mL [phone] T4 Free 0.97 ng/dL Normal 0.61-1.12 2 Laboratory test 05/28/2019 [facility] Surgical SEE RESULT 3 [place] [address] Pathology BELOW [phone] Laboratory test 05/23/2019 [facility] HCG 89047.00 4 finding [place] [address] mIU/mL [phone] Laboratory test 05/21/2019 [facility] HCG 39558.00 5 finding [place] [address] mIU/mL [phone] 1 [id number] 2 [id number] 3 SEE RESULT BELOW Name: APOORVA BATRES : [address]: Jonny Mancera DO Acct: [id number] Unit: [id number] AGE: 33 Location: OR Re05/28/19 SEX: F [place] [facility]: [id number] AGUSTÍN: 05/28/19- [facility] DR: Jonny Mancera DO REQ: [id number] RECD: 05/28/19 STATUS: SOUT _ ORDERED: LEVEL [...] villi are identified. No parts are identified. Surface Supervisor sections, two cassettes. Signed by and Reported on: Cal Neal MD 1336 END OF REPORT DEPARTMENT OF PATHOLOGY, [address] [place] [address] Cal Neal M.D. Director [facility] # [id number] 4 <5.0 Negative 5.0 - 25.0 Indeterminate (Repeat testing recommended after 72 hours) >25.0 Positive Perimenopausal women can display HCG levels of up to 20 mIU/mL 5 <5.0 Negative 5.0 - 25.0 Indeterminate (Repeat testing recommended after 72 hours) >25.0 Positive Perimenopausal women can display HCG levels of up to 20 mIU/mL Procedures Date Code Description Status 05/28/2019 70187 Dilation & Curettage (D&C) Completed 05/21/2019 10033 OB Ultrasound First Trimester Completed Medical Devices Description No Information Available Encounters Type Date Location Provider Dx Diagnosis Office Visit 06/10/2019 [facility] Jonny Mancera JR, O02.1 Missed 1:00p DO Office Visit 05/26/2019 [facility] Betzaida Peterson, O02.1 Missed 11:00a MD Office Visit 05/21/2019 [facility] Otilia Rasmussen CNM O36.80x1 with 10:30a inconclusive [...] 1:00 pm - [facility] at [facility]11/20/2019 3:00 pm - [facility] at [facility]11/20/2019 2:30 pm - Ultrasounds at [facility]06/10/2019 - Jonny Mancera JR, DOO02.1 Missed abortionComments:Pt recovering well.No complications s/p suction D&C for MAB.Will check TSH/T4. Functional Status Description No Information Available Mental Status Description No Information Available Referrals Description No Information Available
[2019-11-22 19:17] VITALS: BP 125/70
== END 2019-11-22 19:16 | disposition home or self-care (01) ==
LOC: ED 17:34
DX: N93.9 Abnormal uterine and vaginal bleeding, unspecified (principal); O20.0 Threatened abortion; Z3A.01 Less than 8 weeks gestation of pregnancy; F41.9 Anxiety disorder, unspecified; D64.9 Anemia, unspecified
CPT/HCPCS: 76801; 99282

== ENCOUNTER 2020-06-20 06:45 | Inpatient (IN) ==
[2020-06-20] MEDS ORDERED: Buffered Lidocaine 1% SYRIN 1 ml INTRADERM ONE (08:05)
[2020-06-20] MEDS ORDERED: Lactated Ringers 1000 ml BAG 1,000 ML IV ONE ×2 (08:05→15:39)
[2020-06-20 08:52] LABS: Urine Benzodiazepine Screen None Detected (None Detect); Urine Cannabinoids Screen None Detected (None Detect); Urine Opiates Screen None Detected (None Detect)
[2020-06-20] MEDS ORDERED: Lactated Ringers 1000 ml BAG 1,000 ML IV SCH ×3 (09:00→17:00)
[2020-06-20 14:56] LABS: ABS Lymphocytes 1.3 10^3/ul (1.0-4.8); ABS Monocytes 0.9 10^3/ul (0-0.8); ABS Neutrophils 7.9 10^3/ul (1.5-7.7); Eosinophil % 0.4 %; Hematocrit 34 % (35-47); Hemoglobin 11.3 g/dL (12.0-16.0); Lymphocyte % 13.1 %; Mean Corpuscular HGB Conc 34 g/dL (31-36); Mean Corpuscular Hemoglobin 30 pg (27-31); Mean Corpuscular Volume 90 fL (80-97); Mean Platelet Volume 8.2 fL (7.4-10.4); Platelet Count 227 10^3/uL (150-450); Red Blood Count 3.73 10^6 /uL (3.70-4.87); Red Cell Distribution Width 14 % (10-15); White Blood Count 10.1 10^3/uL (3.5-10.8)
[2020-06-20] MEDS ORDERED: OBEPIDURAL 0 ML EPIDURAL ONE (15:00)
[2020-06-20] MEDS ORDERED: Bupivacaine 0.25% SDV PF 10 ML VIAL INJ ONE (15:19)
[2020-06-20] MEDS ORDERED: Phenylephrine 40 mcg/mL 10mL (400mcg) SYRINGE IV PUSH PRN ×2 (15:39)
[2020-06-20] MEDS ORDERED: Sodium Citrate/Citric Acid LIQ 15 ML UDC PO PRN (15:39)
[2020-06-20] MEDS ORDERED: Oxytocin in LR 20 UNITS/1,000 ML BAG IVPB ONE (15:51)
[2020-06-20] MEDS ORDERED: Dibucaine 1% OINT 28.35 GM TUBE ONE (16:01)
[2020-06-20] MEDS ORDERED: Dibucaine 1% OINT 28.35 GM TUBE PR PRN (16:23)
[2020-06-20] MEDS ORDERED: Glycerin ADULT 2.4 gm SUPP PR PRN (16:23)
[2020-06-20] MEDS ORDERED: Witch Hazel PAD JAR TOPICAL PRN (16:23)
[2020-06-20] MEDS ORDERED: Oxytocin in LR 20 UNITS/1,000 ML BAG IVPB SCH (17:00)
[2020-06-20] MEDS ORDERED: Lidocaine 1% VIAL 10 MG/ML VIAL ONE (19:04)
[2020-06-21 06:16] LABS: ABS Lymphocytes 1.5 10^3/ul (1.0-4.8); ABS Monocytes 0.7 10^3/ul (0-0.8); ABS Neutrophils 8.1 10^3/ul (1.5-7.7); Eosinophil % 0.2 %; Hematocrit 24 % (35-47); Hemoglobin 8.1 g/dL (12.0-16.0); Lymphocyte % 14.7 %; Mean Corpuscular HGB Conc 34 g/dL (31-36); Mean Corpuscular Hemoglobin 31 pg (27-31); Mean Corpuscular Volume 90 fL (80-97); Mean Platelet Volume 7.7 fL (7.4-10.4); Platelet Count 194 10^3/uL (150-450); Red Blood Count 2.64 10^6 /uL (3.70-4.87); Red Cell Distribution Width 14 % (10-15); White Blood Count 10.4 10^3/uL (3.5-10.8)
[2020-06-21 12:00] VITALS: BP 106/64
== END 2020-06-21 17:24 | disposition home or self-care (01) | DRG 560 ==
LOC: MCHOBOUT 06:45 → MCHOB 08:10 → UNDODISIN 06-21 14:59
PROVIDERS: ADMIT Midwife; ATTEND Midwife